=== PATIENT | female | born 1955 | race African-American/Black ===

== ENCOUNTER → 2017-01-28 | Outpatient (CLI) | payer MEDICARE ==
--- NOTE | 2017-01-28 11:09 | RAD ---
Pelvis with right hip, 2 views, 01/28/2017: History: Hip pain No fracture or dislocation is identified. The hip joint spaces are well-preserved with only mild marginal spurring. Moderate degenerative change is present in the lower lumbar spine. Scattered vascular calcifications are evident. IMPRESSION: No acute pelvic or right hip abnormality is detected.
== END | disposition home or self-care (01) ==
LOC: DXRADRC 10:20
PROVIDERS: ATTEND General Practice
DX: M25.551 Pain in right hip (principal)
CPT/HCPCS: 73501

== ENCOUNTER → 2017-07-19 | Outpatient (CLI) | payer MEDICARE ==
--- NOTE | 2017-07-19 15:03 | RAD ---
3 views right shoulder 07/19/2017 2:00 AM Indication: PAIN IN RIGHT SHOULDER Comparison: None Findings: No evidence of acute fracture or dislocation is identified. Mild hypertrophic degenerative change at the acromioclavicular joint is noted. Soft tissue abnormalities are seen. No acute soft tissue changes are seen. Impression: Mild degenerative changes without evidence of acute osseous abnormality
== END | disposition home or self-care (01) ==
LOC: DXRAD 11:55
PROVIDERS: ATTEND General Practice
DX: M19.011 Primary osteoarthritis, right shoulder (principal)
CPT/HCPCS: 73030